=== PATIENT | female | born 1985 | race Caucasian/White ===

== ENCOUNTER → 2022-06-07 07:56 | Outpatient (CLI) | payer BC, SELFPAY ==
--- NOTE | ~2022-06-07 | XR_ITS ---
XR lumbar spine 2-3V DATE: 06/07/2022 08:19 INDICATION: Low back pain TECHNIQUE: AP, lateral, coned lateral lumbosacral views COMPARISON: None FINDINGS: There is mild levoscoliosis of the lumbar spine. Normal alignment of the lumbar spine. No fracture or dislocation or spondylolisthesis. The lumbar pedicles are intact. Lumbar pedicles ar e intact. Lumbar and lumbosacral interspaces are intact. Sacroiliac joints are normal. IMPRESSION: Mild levoscoliosis Reviewed, dictated and finalized at location B. IMPRESSION: Mild levoscoliosis
== END ==
PROVIDERS: PCP Nurse Practitioner Family; Visit Provider Nurse Practitioner Family
DX: M54.50 Low back pain, unspecified (principal)
CPT/HCPCS: 72100